=== PATIENT | male | born 1955 | race Caucasian/White ===

== ENCOUNTER 2016-04-02 09:52 | Emergency (ER) | payer OTHER ==
[~2016-04-02] VITALS: Ht 180.3 cm; Wt 123.9 kg
[~2016-04-02 09:52] MED LIST: LISI-725 PO; METF1TAB53 PO; TAMS0.4C38 PO
[2016-04-02 09:56] VITALS: TEMP 36.9; Ht 180.3 cm; Wt 123.9 kg
[2016-04-02] MEDS ORDERED: SODIUM CHLORIDE 0.9% 1000ML 1,000 ML IV STA (10:40)
--- NOTE | 2016-04-02 10:50 | EMERGENCY ROOM VISIT NOTE ---
History First contact with patient: 10:09 Chief Complaint: KIDNEY STONE Stated Complaint: KIDNEY STONE History of Present Illness The patient is a 61 year old male who presents to the Emergency Room with complaints of kidney stone. The patient has an extensive history of kidney stones. He states he often is able to pass the stones on his own. He states that in the fall he had a CT scan which revealed an 8 mm kidney stone in the right kidney. He states he believes that this has come out of the kidney. He has had pain in the right flank and now states the pain is near his penis. He rates his discomfort a 2/10. He denies any fevers or chills. He denies any dysuria, urgency or frequency. He denies any pain in his chest or trouble breathing. He denies any falls or injuries. Review of Systems A 10 system review of systems was completed with positives and pertinent negatives listed in the HPI. Past Medical/Surgical History Medical Problems: (1) Diabetes (2) Hypertension (3) Kidney stone Social History Smoking Status: Current Every Day Smoker Current/Historical Medications Scheduled Ciprofloxacin Hcl (Cipro), 500 MG PO BID Lisinopril (Zestril), 20 MG PO QAM Metformin Hcl (Glucophage Ext Rel), 1,000 MG PO BID Tamsulosin Hcl (Flomax), 0.4 MG PO QAM Allergies Coded Allergies: Statins (Verified Allergy, Mild, MUSCLE PAINS, 04/02/16) Physical Exam Vital Signs Date Time Temp Pulse Resp B/P Pulse Ox O2 Delivery O2 Flow Rate FiO2 04/02/16 13:05 91 18 134/90 93 Room Air 04/02/16 09:56 36.9 107 17 132/86 94 Room Air Physical Exam VITALS: Vitals are noted on the nurse's note and reviewed by myself. Vital signs stable. The patient is afebrile. GENERAL: This is 61-year-old male, in no acute distress, nondiaphoretic, well- developed well-nourished. SKIN: The skin was without rashes, erythema, edema, or bruising. There is no tenting of the skin. Capillary reflex less than 2 seconds. HEAD: Normocephalic atraumatic. EARS: The external ears are normal in appearance. EYES: Pupils equal round and reactive to light and accommodation. Conjunctivae without injection, sclerae without icterus. Extraocular movements intact. NOSE: Patent, turbinates without inflammation or discharge. MOUTH: Mucous membranes moist. Tonsils are not enlarged. Pharynx without erythema or exudate. Uvula midline. Airway patent. Tongue does not deviate. NECK: Supple without nuchal rigidity. No JVD. HEART: Regular rate and rhythm without murmurs gallops or rubs. LUNGS: Clear to auscultation bilaterally without wheezes, rales or rhonchi. No retractions or accessory muscle use. ABDOMEN: Positive bowel sounds x 4. Soft, nontender, without masses or organomegaly. : The external genitalia is normal in appearance. There is tenderness to palpation at the very base of the penis. MUSCULOSKELETAL: No muscle atrophy, erythema, or edema noted. Full range of motion in all extremities. Normal gait. Strength 5/5 throughout. NEURO: Patient was alert and oriented to person place and time. No focal neurological deficits. Medical Decision & Procedures ER Provider Diagnostic Interpretation: KUB CLINICAL HISTORY: Possible kidney stones. COMPARISON STUDY: None. FINDINGS: Numerous left abdominal calcifications measure up to 1.2 cm and likely reflect renal calculi. No right renal calculi are identified. Several possible calcifications project between the left transverse processes of L2 and L3. IMPRESSION: 1. Suspected extensive left-sided nephrolithiasis. 2. Several calcifications measuring up to 5 mm projecting over the proximal left ureter. These could reflect artifact or proximal left ureteral calculi. Laboratory Results 04/02/16 11:00 Red Blood Count 5.61, Mean Corpuscular Volume 86.3, Mean Corpuscular Hemoglobin 30.8, Mean Corpuscular Hemoglobin Concent 35.7, Mean Platelet Volume 8.9, Neutrophils (%) (Auto) 65.0, Lymphocytes (%) (Auto) 21.7, Monocytes (%) (Auto) 8.9, Eosinophils (%) (Auto) 3.3, Basophils (%) (Auto) 0.3, Neutrophils # (Auto) 7.77, Lymphocytes # (Auto) 2.60, Monocytes # (Auto) 1.06, Eosinophils # (Auto) 0.39, Basophils # (Auto) 0.04 04/02/16 11:00 Test 04/02/16 10:58 04/02/16 11:00 Urine Color DK YELLOW Urine Appearance CLEAR (CLEAR) Urine pH 7.0 (4.5-7.5) Urine Specific [place] 1.018 (1.000-1.030) Urine Protein 2+ (NEG) Urine Glucose (UA) NEG (NEG) Urine Ketones NEG (NEG) Urine Occult Blood 3+ (NEG) Urine Nitrite NEG (NEG) Urine Bilirubin NEG (NEG) Urine Urobilinogen NEG (NEG) Urine Leukocyte Esterase SMALL (NEG) Urine WBC (Auto) 10-30 /hpf (0-5) Urine RBC (Auto) >30 /hpf (0-4) Urine Hyaline Casts (Auto) 5-10 /lpf (0-5) Urine Epithelial Cells (Auto) >30 /lpf (0-5) Urine Bacteria (Auto) NEG (NEG) Urine Renal Epithelial Cells /lpf (0-5) Urine Mucus PRESENT (NONE PRSENT) White Blood Count 11.96 K/uL (4.8-10.8) Red Blood Count 5.61 M/uL (4.7-6.1) Hemoglobin 17.3 g/dL (14.0-18.0) Hematocrit 48.4 % (42-52) Mean Corpuscular Volume 86.3 fL (80-100) Mean Corpuscular Hemoglobin 30.8 pg (25-34) Mean Corpuscular Hemoglobin Concent 35.7 g/dl (32-36) Platelet Count 243 K/uL (130-400) Mean Platelet Volume 8.9 fL (7.4-10.4) Neutrophils (%) (Auto) 65.0 % Lymphocytes (%) (Auto) 21.7 % Monocytes (%) (Auto) 8.9 % Eosinophils (%) (Auto) 3.3 % Basophils (%) (Auto) 0.3 % Neutrophils # (Auto) 7.77 K/uL (1.4-6.5) Lymphocytes # (Auto) 2.60 K/uL (1.2-3.4) Monocytes # (Auto) 1.06 K/uL (0.11-0.59) Eosinophils # (Auto) 0.39 K/uL (0-0.5) Basophils # (Auto) 0.04 K/uL (0-0.2) RDW Standard Deviation 42.6 fL (36.4-46.3) RDW Coefficient of Variation 13.5 % (11.5-14.5) Immature Granulocyte % (Auto) 0.8 % Immature Granulocyte # (Auto) 0.10 K/uL (0.00-0.02) Anion Gap 10.0 mmol/L (3-11) Est Creatinine Clear Calc Drug Dose 135.1 ml/min Estimated GFR () 113.2 Estimated GFR (Non- 97.6 BUN/Creatinine Ratio 30.5 (10-20) Calcium Level 9.3 mg/dl (8.5-10.1) Total Bilirubin 0.6 mg/dl (0.2-1) Aspartate Amino Transf (AST/SGOT) 20 U/L (15-37) Alanine Aminotransferase (ALT/SGPT) 29 U/L (12-78) Alkaline Phosphatase 61 U/L (45-117) Total Protein 7.1 gm/dl (6.4-8.2) Albumin 3.9 gm/dl (3.4-5.0) Globulin 3.2 gm/dl (2.5-4.0) Albumin/Globulin Ratio 1.2 (0.9-2) Medications Administered Medications (Trade) Dose Ordered Sig/Radha Route Start Time Stop Time Status Last Admin Dose Admin Sodium Chloride (Nss 1000ml) 1,000 ml @ 999 mls/hr Q1H1M STAT IV 04/02/16 10:40 04/02/16 11:40 DC 04/02/16 10:40 999 MLS/HR ED Course The patient was seen and examined. Previous visits were reviewed. The patient does not have a fever or leukocytosis. He does not have any significant electrolyte abnormality. Urinalysis suggests urinary tract infection and contamination. KUB reveals multiple left-sided stones. There is no obvious right-sided stone. There does appear to be a small calcification in the area of the base of the patient's penis on KUB. This could potentially represent a stone. The patient denied the need for any pain medication. He was hydrated with normal saline. He requests a follow-up with urology. He initially was interested in the urologist the him in the emergency department today and removing the stone. I advised him that an outpatient appointment is more reasonable at this time. manager strategic was able to make an appointment with Dr. Clifford Bryant at 9:15 AM on Tuesday. The patient was advised of this and seemed happy with the plan of care. The patient should return to the ER with any worsening symptoms. The case was discussed with Dr. Henry who agrees with the assessment and treatment plan Medical Decision DIFFERENTIAL DIAGNOSIS: Hepatitis, cholecystitis, cholangitis, biliary colic, pancreatitis, pneumonia, subdiaphragmatic abscess, appendicitis, inguinal hernia , nephrolithiasis, inflammatory bowel disease, mesenteric adenitis, peptic ulcer disease, GERD, gastritis, pancreatitis,gastroenteritis, bowel obstruction , splenic infarct, diverticulitis, mesenteric ischemia, metabolic, peritonitis , among others. Impression Primary Impression: Kidney stone Additional Impression: Urinary tract infection Departure Information Dispostion Home / Self-Care Condition GOOD Prescriptions Ciprofloxacin Hcl (CIPRO) 500 Mg Tab 500 MG PO BID for 7 Days, #14 TAB Prov: Vy Hughes PA-C 04/02/16 Referrals Marcin Savage M.D. (PCP) Clifford Bryant MD, Urology Patient Instructions My [facility] Additional Instructions Cipro as prescribed, until finished Follow-up with urology for further evaluation and management Return with any worsening symptoms Problem Qualifiers
[2016-04-02 11:08] LABS: BASO % 0.3 %; BASO ABS # 0.04 K/uL (0-0.2); COMPLETE YES; EOS % 3.3 %; HEMATOCRIT 48.4 % (42-52); IG% 0.8 %; LYMPH % 21.7 %; MEAN CELL VOLUME 86.3 fL (80-100); MEAN CORPUSCULAR HEMOGLOBIN 30.8 pg (25-34); MEAN CORPUSCULAR HGB CONC 35.7 g/dl (32-36); MEAN PLATELET VOLUME 8.9 fL (7.4-10.4); MONO % 8.9 %; PLATELET COUNT 243 K/uL (130-400); RED BLOOD COUNT 5.61 M/uL (4.7-6.1); WHITE BLOOD COUNT 11.96 K/uL (4.8-10.8)
[2016-04-02 11:17] LABS: URINE APPEARANCE CLEAR (CLEAR); URINE BILIRUBIN NEG (NEG); URINE COLOR DK YELLOW; URINE EPITHELIAL CELL AUTO >30 /lpf (0-5); URINE NITRITE NEG (NEG); URINE SPECIFIC GRAVITY 1.018 (1.000-1.030); UROBILINOGEN NEG (NEG); ZZUR CULT IF INDIC CLEAN CATCH YES
[2016-04-02 11:26] LABS: BUN/CREATININE RATIO 30.5 (10-20); CALCIUM 9.3 mg/dl (8.5-10.1); CREATININE 0.75 mg/dl (0.60-1.40); POTASSIUM 4.3 mmol/L (3.5-5.1)
[2016-04-02 11:27] LABS: MANUAL MICROSCOPIC REQUIRED? NO; REVIEW REQ? YES
[2016-04-02 11:29] LABS: ALB/GLOB RATIO 1.2 (0.9-2)
[2016-04-02 11:38] LABS: URINE MUCUS PRESENT (NONE PRSENT)
--- NOTE | 2016-04-02 11:54 | DIAGNOSTIC IMAGING REPORT ---
KUB CLINICAL HISTORY: Possible kidney stones. COMPARISON STUDY: None. FINDINGS: Numerous left abdominal calcifications measure up to 1.2 cm and likely reflect renal calculi. No right renal calculi are identified. Several possible calcifications project between the left transverse processes of L2 and L3. IMPRESSION: 1. Suspected extensive left-sided nephrolithiasis. 2. Several calcifications measuring up to 5 mm projecting over the proximal left ureter. These could reflect artifact or proximal left ureteral calculi. Electronically signed by: Chas Acosta M.D. 04/02/2016 11:52 AM Dictated Date/Time: 04/02/2016 11:48 AM
[2016-04-02] MEDS ORDERED: CIPR-255 PO (12:40)
[2016-04-02 13:05] VITALS: BP 134/90; PULSE 91; O2SAT 93
== END 2016-04-02 13:07 | disposition home or self-care (01) ==
LOC: C.EDB 09:54
DX: N20.0 Calculus of kidney (principal); N39.0 Urinary tract infection, site not specified; E11.9 Type 2 diabetes mellitus without complications; I10 Essential (primary) hypertension; Z79.84 Long term (current) use of oral hypoglycemic drugs; F17.200 Nicotine dependence, unspecified, uncomplicated; Z79.899 Other long term (current) drug therapy; Z87.442 Personal history of urinary calculi